=== PATIENT | male | born 1975 | race Hispanic/Latino ===

== ENCOUNTER 2017-06-06 16:19 | Inpatient (IN) | payer SELFPAY ==
[2017-06-06 17:07] LABS: Basophils % (Auto) 0.5 % (0.0-1.8); Eosinophils % (Auto) 0.6 % (0.0-4.3); Hematocrit 45.1 % (35.5-45.6); Hemoglobin 15.2 gm/dl (11.8-15.2); Mean Corpuscular HGB Conc 34 % (32-34); Mean Corpuscular Hemoglobin 31 pg (28-32); Mean Corpuscular Volume 93 fl (84-94); Platelet Count 251 K/mm3 (140-440); Red Blood Count 4.85 M/mm3 (3.65-5.03); Red Cell Distribution Width 14.5 % (13.2-15.2); White Blood Count 13.9 K/mm3 (4.5-11.0)
[2017-06-06 17:16] LABS: Anion Gap 22 mmol/L; BUN/Creatinine Ratio 18.88; Blood Urea Nitrogen 17 mg/dL (9-20); Calcium 10.2 mg/dL (8.4-10.2); Carbon Dioxide 25 mmol/L (22-30); Chloride 102.4 mmol/L (98-107); Glucose 93 mg/dL (75-100); Sodium 144 mmol/L (137-145)
[2017-06-06] MEDS ORDERED: TYLENOL ONE (21:37)
[2017-06-06] MEDS ORDERED: MORPHINE IV ONE (22:28)
[2017-06-06] MEDS ORDERED: NITRO-BID 2% TP ONE (22:28)
[2017-06-06] MEDS ORDERED: ZOFRAN IV ONE (22:28)
--- NOTE | 2017-06-06 22:35 | Emergency Department Report ---
HPI - General Chief Complaint: Chest Pain Time Seen by Provider: 06/06/17 22:20 - HPI HPI: Room 4 The patient is a 42-year-old male presenting with a chief complaint of chest pain. The patient states earlier today while he was up on a ladder to develop substernal/left-sided chest pain described as sharpness. The patient states his left upper extremity felt heavy and he fell off a ladder landing on his feet and buttocks. Patient admits to shortness of breath with this chest pain as well as nausea and diaphoresis. Patient currently gets his chest pain score of 5/10. The patient states he never had a stress test or cardiac catheterization Location: [see above] Duration: One day Quality: Sharp Severity:5/10 Modifying factors: [see above] Context: [see above] Mode of transportation: [not driving] ED Past Medical Hx - Past Medical History Previous Medical History?: No - Surgical History Past Surgical History?: No - Family History Family history: no significant - Social History Smoking Status: Current Every Day Smoker (2.5 packs per day) Substance Use Type: None (denies illicit drug use), Alcohol (consumes alcohol daily. Usually approximate 6-12 beers) - Medications Home Medications: Home Medications Medication Instructions Recorded Confirmed Last Taken Type oxyCODONE /ACETAMINOPHEN [Percocet 1 tab PO Q6HR PRN 06/06/17 06/06/17 Unknown History ] ED Review of Systems ROS: Stated complaint: FALL,CHEST PAIN Other details as noted in HPI Comment: All other systems reviewed and negative Constitutional: diaphoresis. denies: chills, fever Eyes: denies: eye pain, eye discharge, vision change Respiratory: shortness of breath Cardiovascular: chest pain Endocrine: no symptoms reported Gastrointestinal: nausea Genitourinary: denies: urgency, dysuria Musculoskeletal: back pain Skin: denies: rash, lesions Neurological: paresthesias (left upper extremity). denies: headache, weakness Psychiatric: denies: anxiety, depression Hematological/Lymphatic: denies: easy bleeding, easy bruising Physical Exam - Physical Exam Vital Signs: Vital Signs 06/06/17 06/06/17 06/06/17 16:32 21:31 22:11 Temperature 98.4 F 98.6 F Pulse Rate 97 H 73 74 Respiratory 16 18 16 Rate Blood Pressure 120/87 125/90 Blood Pressure 131/85 [Left] O2 Sat by Pulse 100 100 95 Oximetry Physical Exam: GENERAL: The patient is well-developed well-nourished male lying on stretcher not appearing to be in acute distress. [] HEENT: Normocephalic. Atraumatic. Extraocular motions are intact. Patient has moist mucous membranes. NECK: Supple. Trachea midline CHEST/LUNGS: Clear to auscultation. There is no respiratory distress noted. HEART/CARDIOVASCULAR: Regular. There is no tachycardia. There is no gallop rub or murmur. ABDOMEN: Abdomen is soft, nontender. Patient has normal bowel sounds. There is no abdominal distention. SKIN: There is no rash. There is no edema. There is no diaphoresis. NEURO: The patient is awake, alert, and oriented. The patient is cooperative. The patient has normal speech MUSCULOSKELETAL: There is no axial cervical, thoracic or lumbar tenderness to palpation. There is no limitation range of motion. There is no evidence of acute injury. Patient points to sacrum as source of pain ED Course Vital Signs 06/06/17 06/06/17 06/06/17 16:32 21:31 22:11 Temperature 98.4 F 98.6 F Pulse Rate 97 H 73 74 Respiratory 16 18 16 Rate Blood Pressure 120/87 125/90 Blood Pressure 131/85 [Left] O2 Sat by Pulse 100 100 95 Oximetry ED Medical Decision Making - Lab Data Result diagrams: 06/06/17 16:43 06/06/17 16:43 Laboratory Tests 06/06/17 06/06/17 06/06/17 16:43 16:43 19:19 WBC 13.9 H RBC 4.85 Hgb 15.2 Hct 45.1 MCV 93 MCH 31 MCHC 34 RDW 14.5 Plt Count 251 Lymph % (Auto) 13.3 L [place] % (Auto) 6.6 Eos % (Auto) 0.6 Baso % (Auto) 0.5 Lymph # 1.8 [place] # 0.9 H Eos # 0.1 Baso # 0.1 Seg Neutrophils % 79.0 H Seg Neutrophils # 11.0 H Sodium 144 Potassium 5.0 Chloride 102.4 Carbon Dioxide 25 Anion Gap 22 BUN 17 Creatinine 0.9 Estimated GFR > 60 BUN/Creatinine Ratio 18.88 Glucose 93 Calcium 10.2 Troponin T < 0.010 < 0.010 - EKG Data -: EKG Interpreted by Me EKG shows normal: sinus rhythm Rate: normal - EKG Data When compared to previous EKG there are: previous EKG unavailable Interpretation: normal EKG - Radiology Data Radiology results: image reviewed (chest x-ray, sacral x-ray) interpreted by me: Chest x-ray- no focal infiltrates, no pneumothorax Sacral x-ray-no acute fracture seen. Chronic appearing changes at L5 vertebral body - Differential Diagnosis ACS, GERD, pericarditis, PE, coccyx fracture Critical care attestation.: If time is entered above; I have spent that time in minutes in the direct care of this critically ill patient, excluding procedure time. ED Disposition Clinical Impression: Chest pain Disposition: DC-09 OP ADMIT IP TO THIS HOSP Is pt being admited?: Yes Does the pt Need Aspirin: Yes Condition: Fair Instructions: Chest Pain (ED) Referrals: PRIMARY CARE, [Primary Care Provider] - 3-5 Days Time of Disposition: 23:16 (hospitalist paged)
--- NOTE | 2017-06-06 23:19 | XRay Report ---
FINAL REPORT PROCEDURE: XR SPINE SACRUM/COCCYX 2+V TECHNIQUE: Sacrum and coccyx radiographs, AP and lateral views. HISTORY: low back pain after fall COMPARISON: No prior studies are available for comparison. FINDINGS: Bilateral spondylolysis appears to be present at L5 with grade 2 spondylolisthesis L5 in relation S1. The disc space is markedly narrowed. Vascular calcifications are seen overlying the lower abdominal aorta and iliac arteries. No other fractures are identified. Bone density appears normal. Mild degenerative changes are seen in the SI joints bilaterally IMPRESSION: Bilateral spondylolysis L5 with grade 2 spondylolisthesis L5 in relation S1. Mild degenerative changes SI joints bilaterally.
[2017-06-06] MEDS ORDERED: ASPIRIN PO ONE (23:34)
[2017-06-06] MEDS ORDERED: ALUM-MAG HYDROX-SIMETH 200-200-20MG/5ML PO PRN (23:41)
[2017-06-06] MEDS ORDERED: ZOFRAN IV PRN (23:41)
[2017-06-06] MEDS ORDERED: DULCOLAX PR PRN (23:41)
[2017-06-06] MEDS ORDERED: TYLENOL PO PRN (23:41)
[2017-06-06] MEDS ORDERED: PROVENTIL IH PRN (23:41)
[2017-06-06] MEDS ORDERED: NACL 0.9% 1000 ML 1,000 ML IV SCH (23:45)
[2017-06-06] MEDS ORDERED: NITROSTAT SL PRN (23:47)
--- NOTE | 2017-06-06 23:51 | History and Physical Report ---
History of Present Illness Date of examination: 06/06/17 Chief complaint: chest pain History of present illness: The patient is a 42-year-old male presenting with a chief complaint of chest pain. The patient states earlier today while he was up on a ladder to develop substernal/left-sided chest pain described as sharpness. The patient states his left upper extremity felt heavy and he fell off a ladder landing on his feet and buttocks. Patient admits to shortness of breath with this chest pain as well as nausea and diaphoresis. Patient currently gets his chest pain score of 5/10. The patient states he never had a stress test or cardiac catheterization Past History Past Medical History: No medical history Past Surgical History: No surgical history Social history: smoking, alcohol abuse, full code Family history: no significant family history Medications and Allergies Allergies Allergy/AdvReac Type Severity Reaction Status Date / Time No Known Allergies Allergy Verified 06/06/17 21:45 Home Medications Medication Instructions Recorded Confirmed Last Taken Type oxyCODONE /ACETAMINOPHEN [Percocet 1 tab PO Q6HR PRN 06/06/17 06/06/17 Unknown History ] Review of Systems All systems: negative (all 14 systems reviewed and found to be negative except as mentioned in HPI) Exam - Constitutional Vitals: Temp Pulse Resp BP Pulse Ox 98.6 F 74 16 131/85 95 06/06/17 21:31 06/06/17 22:11 06/06/17 22:11 06/06/17 22:11 06/06/17 22:11 Results - Labs CBC & Chem 7: 06/06/17 16:43 06/06/17 16:43 Labs: Laboratory Last Values WBC 13.9 K/mm3 (4.5-11.0) H 06/06/17 16:43 RBC 4.85 M/mm3 (3.65-5.03) 06/06/17 16:43 Hgb 15.2 gm/dl (11.8-15.2) 06/06/17 16:43 Hct 45.1 % (35.5-45.6) 06/06/17 16:43 MCV 93 fl (84-94) 06/06/17 16:43 MCH 31 pg (28-32) 06/06/17 16:43 MCHC 34 % (32-34) 06/06/17 16:43 RDW 14.5 % (13.2-15.2) 06/06/17 16:43 Plt Count 251 K/mm3 (140-440) 06/06/17 16:43 Lymph % (Auto) 13.3 % (13.4-35.0) L 06/06/17 16:43 [place] % (Auto) 6.6 % (0.0-7.3) 06/06/17 16:43 Eos % (Auto) 0.6 % (0.0-4.3) 06/06/17 16:43 Baso % (Auto) 0.5 % (0.0-1.8) 06/06/17 16:43 Lymph # 1.8 K/mm3 (1.2-5.4) 06/06/17 16:43 [place] # 0.9 K/mm3 (0.0-0.8) H 06/06/17 16:43 Eos # 0.1 K/mm3 (0.0-0.4) 06/06/17 16:43 Baso # 0.1 K/mm3 (0.0-0.1) 06/06/17 16:43 Seg Neutrophils % 79.0 % (40.0-70.0) H 06/06/17 16:43 Seg Neutrophils # 11.0 K/mm3 (1.8-7.7) H 06/06/17 16:43 D-Dimer < 135.00 ng/mlDDU (0-234) 06/06/17 22:30 Sodium 144 mmol/L (137-145) 06/06/17 16:43 Potassium 5.0 mmol/L (3.6-5.0) 06/06/17 16:43 Chloride 102.4 mmol/L (98-107) 06/06/17 16:43 Carbon Dioxide 25 mmol/L (22-30) 06/06/17 16:43 Anion Gap 22 mmol/L 06/06/17 16:43 BUN 17 mg/dL (9-20) 06/06/17 16:43 Creatinine 0.9 mg/dL (0.8-1.5) 06/06/17 16:43 Estimated GFR > 60 ml/min 06/06/17 16:43 BUN/Creatinine Ratio 18.88 % 06/06/17 16:43 Glucose 93 mg/dL (75-100) 06/06/17 16:43 Calcium 10.2 mg/dL (8.4-10.2) 06/06/17 16:43 Troponin T < 0.010 ng/mL (0.00-0.029) 06/06/17 22:30 Assessment and Plan Assessment and plan: Assessment and plan - * Chest pain rule out acute coronary syndrome * Plan to admit the patient to medical floor for telemetry * Check serial cardiac enzymes * Schedule the patient for a stress test in a.m. * Give when necessary morphine and nitroglycerin for chest pain * Patient is also status post fall and complaining of low back pain * Patient counseled extensively regarding tobacco abuse patient admitted to quit smoking * Monitor CBC and electrolytes replace electrolytes when necessary * DVT Prophylaxis as ordered * monitor and follow the patient closely VTE prophylaxis?: Chemical, Mechanical Plan of care discussed with patient/family: Yes
[2017-06-07 00:39] LABS: Creatine Kinase 230 units/L (55-170); Creatine Kinase MB 3.1 ng/mL (0.0-4.0)
[2017-06-07] MEDS: MORPHINE IV PRN ×2 (02:57→10:32)
[2017-06-07 05:03] LABS: Bilirubin,Urine NEG (Negative); Blood,Urine NEG (Negative); Ketones,Urine 20 mg/dL (Negative); Leukocyte Esterase,Urine NEG (Negative); Mucus,Urine 3+ /HPF; Nitrite,Urine NEG (Negative)
[2017-06-07] MEDS: NORCO 5/325 PO PRN ×2 (06:08→16:29)
[2017-06-07 07:00] LABS: Basophils % (Auto) 1.3 % (0.0-1.8); Eosinophils % (Auto) 5.9 % (0.0-4.3); Hematocrit 44.5 % (35.5-45.6); Hemoglobin 15.1 gm/dl (11.8-15.2); Mean Corpuscular HGB Conc 34 % (32-34); Mean Corpuscular Hemoglobin 31 pg (28-32); Mean Corpuscular Volume 93 fl (84-94); Platelet Count 243 K/mm3 (140-440); Red Cell Distribution Width 14.6 % (13.2-15.2); White Blood Count 7.6 K/mm3 (4.5-11.0)
[2017-06-07 07:22] LABS: Alanine Aminotransferase 21 units/L (7-56); Albumin 4.2 g/dL (3.9-5); Albumin/Globulin Ratio 1.4 %; Alkaline Phosphatase 37 units/L (35-129); Anion Gap 19 mmol/L; BUN/Creatinine Ratio 34.28; Blood Urea Nitrogen 24 mg/dL (9-20); Carbon Dioxide 25 mmol/L (22-30); Chloride 101.3 mmol/L (98-107); Glucose 104 mg/dL (75-100); Potassium 3.8 mmol/L (3.6-5.0); Sodium 141 mmol/L (137-145); Total Protein 7.1 g/dL (6.3-8.2)
--- NOTE | 2017-06-07 07:28 | XRay Report ---
CHEST 2 VIEWS INDICATION: Chest pain. COMPARISON: None similar at this institution. FINDINGS: PA and lateral chest radiographs demonstrate normal cardiomediastinal silhouette. No pleural effusions or CHF. Well-expanded lungs. Approximately 3 x 1.3 cm vague density in the left lower lung along the left ninth rib may represent an old deformity. CONCLUSION: Nonspecific left lower lung/possibly ninth rib finding, as described. Please also correlate clinically and with relevant imaging, as appropriate. Otherwise clear lungs. Thank you for the opportunity to participate in this patient's care.
[2017-06-07 07:31] LABS: Creatine Kinase 217 units/L (55-170)
[2017-06-07] MEDS ORDERED: LEXISCAN IV ONE ×2 (08:42→08:44)
--- NOTE | 2017-06-07 08:44 | Admit Criteria Form ---
Admission Criteria Documentation: CARDIOLOGY GRG Clinical Indications for Admission to Inpatient Care ([place]/check or initial the applicable condition/criteria) Hospital admission is needed for appropriate care of the patient because of ANY ONE of the following: [ ] I. Hemodynamic instability as indicated by ALL of the following (1)(2)(3) (4)(5)(6)(7)(8)(9)(10) [ ]a) Vital sign abnormality not readily corrected by appropriate treatment with 12-24 hours for ANY ONE: [ ]i) Hypotension that persists despite appropriate treatment (eg, volume repletion) [ ]ii) Tachycardiathat persists despite appropriate tx ( e.g., analgesia, fluids, sedation as indicated [ ]iii) Orthostatic vital sign changes that persists despite appropriate treatment (eg, volume repletion) [ ]b) Vital sign abnormailty that is severe indicated by ANY ONE of the following: [ ]i) Inadequate perfusion indicated by ANY ONE of the following: [ ] 1) Lactic acidosis (> 2 mmol/L) [ ] 2) New abnormal capillary refill (> 3 seconds) [ ] 3) Reduced urine output [ ] 4) New altered mental status [ ] 5) Myocardial Ischemia [ ] 6) Other metabolic acidosis (arterial pH <7.35 ) not otherwise explained. [ ]ii) Mean arterial pressure[A] less than 60 mm Hg [ ]iii) Mean arterial pressure[A] less than 70 mm Hg after 30 minutes of appropriate treatment (eg, fluid resuscitation) [ ]iv) Sustained heart rate greater than 120 beats per minute in adult or child 6 years or older[B] [ ]v) IV inotropic or vasopressor medication required to maintain adequate blood pressure or perfusion [ ] II. Severe heart failure as indicated by ANY ONE of the following(17)(18) [ ]a) Respiratory distress [ ]b) Hypotension [ ]c) Debilitating anasarca refractory to therapy (eg, tissue breakdown with infection)[C](19) [ ]d) Cardiac arrhythmias of immediate concern [ ]e) Myocardial ischemia [ ] III. Cardiac arrhythmias or findings of immediate concern indicated by ANY ONE of the following (21)(22): [ ] a) Heart rhythms that are inherently dangerous or unstable indicated by ANY ONE of the following (23)(24)(25): [ ] i) Resuscitated ventricular fibrillation or cardiac arrest [ ] ii) Ventricular escape rhythm [ ] iii) Sustained ventricular tachycardia (30 seconds or more of ventricular rhythm at greater than 100 beats per minute) [ ] iv) Nonsustained ventricular tachycardia and ANY ONE of the following: [ ] 1) Suspected cardiac ischemia as cause or consequence of ventricular tachycardia [ ] 2) Acute myocarditis [ ] b) Unstable cardiac conduction defects indicated by ANY ONE of the following(25)(26)(27) [ ] i) Type II second-degree atrioventricular block [ ]ii) Third-degree atrioventricular block [ ]iii) New-onset left bundle branch block with suspected myocardial ischemia [ ]c) Any heart rhythm and ANY ONE of the following (23)(24)(28)(29) (30) [ ] i) Continuous long-term ECG monitoring needed (e.g., initiation of drug requiring monitoring for more than 24 hours) [ ] ii) Patient has automatic implanted cardioverter defibrillator that is repeatedly firing, malfunctioning, or in need of immediate adjustment of settings beyond the scope of ambulatory or observation care [ ]d) Heart rhythms of concern due to ANY ONE of the following: [ ] i) Hypotension [ ] ii) Respiratory distress [ ] iii) Association with other significant symptoms (e.g., bradycardia with syncope or ongoing dizziness, supraventricular tachycardia with chest pain (28)(29)(31) [ ] IV. Monitoring for cardiac contusion beyond the scope of observation care needed [A](32)(33)(34) [ ] V. Surgical or device complication (e.g., valve replacement complication , ICD disfunction or pacemaker dysfunction) (49)(50)(51)(52)(53)(54) [ ] . Inpatient palliative care needed. [F](51)(52) Also use Inpatient Palliative Care Criteria [ ] VII. Nonbacterial thrombotic (mar[place]) endocarditis(43)(44)(55)(56)(57) [X] VIII. Cardiology condition, symptom, or finding for which emergency and observation care has failed or are not considered appropriate. [ ] IX. Acute valvular disease requiring inpatient as indicated by ANY ONE of the following (40)(41) [ ]a) Acute valvular regurgitation (42) [ ]b) Noninfectious valvulitis (43)(44) [ ]c) Obstructive valve thrombosis (45)(46) [ ]d) Paravalvular leak(47)(48) [ ]e) Other significant valvular disorder remaining after emergency or observation level of care (as appropriate) [ ]X. Pericardial disease requiring inpatient treatment as indicated by ANY ONE of the following (35)(36)(37)(38) [ ]a) Suspected tamponade [ ]b) Hemopericardium [ ]c) Other significant pericardial disorder remaining after emergency or observation level of care (as appropriate)(39) [ ] XI. Cardiac ischemia beyond scope of emergency and observation care. [ ] XII. Cyanotic heart disease requiring inpatient care as indicated by 1 or more of the following(58)(59)(60): [ ]a) Acute onset of hypoxemia [ ]b) Exacerbation [ ] XIII. Hypertension requiring inpatient treatment as indicated by ANYONE of the following(11)(12)(13)(14): [ ]a) Severe hypertension (SBP greater than 180 mm Hg or DBP greater than 110 mm Hg, or greater than the 95th percentile for age, gender, and height in pediatric patients) that cannot be controlled (eg, to SBP less than 160 mm Hg and DBP less than 100 mm Hg) by emergency department or observation care treatment(15) [ ]b) Acute end organ damage secondary to hypertension (SBP greater than 140 mm Hg or DBP greater than 90 mm Hg) as indicated by ANYONE of the following: [ ] i) Hypertensive encephalopathy (eg, Altered mental status)(16) [ ] ii) Cerebral infarction [ ] iii) Intracranial hemorrhage [ ] iv) Myocardial ischemia or infarction [ ] v) Heart failure (eg, pulmonary edema) [ ] vi) Aortic dissection [ ] vii) Increased creatinine (new) with reduction of more than 50% in estimated glomerular filtration rate from baseline [ ] viii) Papilledema [ ] ix) Retinal hemorrhage [ ] x) Microangiopathic hemolytic anemia [ ] xi) Seizure [ ] xii) Other significant finding secondary to hypertension [ ] XIV. Complications of transplanted heart indicated by ANY ONE of the following(61): [ ]a) Acute graft rejection requiring inpatient management (eg, intravenous imunosuppression)(62)(63) [ ]b) Acute graft heart failure indicated by ANY ONE of the following(64): [ ] i) Hemodynamic instability [ ] ii) Cardiac arrhythmias of immediate concern [ ] iii) Pulmonary edema that is very severe (eg, mechanical ventilation needed, imminent or likely, need for 100% oxygen to keep oxygen saturation above 90%) [ ] iv) Pulmonary edema that is persistent as indicated by ALL of the following: [ ] 1) New need for oxygen therapy to keep oxygen saturation above 90 % (or increased FiO2 need from baseline) [ ] 2) Has not improved sufficiently with emergency department or observation care IV diuretics or other heart failure treatments[E]. [ ] iv) Altered mental status that is severe or persistent [ ] iv) Increased creatinine (new on laboratory test) with reduction of more than 50% in estimated glomerular filtration rate from baseline [ ] iv) Progressively (ongoing) rising creatinine (known from past laboratory test) with reduction of more than 25% in estimated glomerular filtration rate from baseline [ ] iv) Acute renal failure [ ] iv) Acute peripheral ischemia (eg, examination shows pulseless, cool, mottled, or cyanotic extremity) [ ] iv) Pulmonary artery catheter monitoring needed [ ] iv) Other sign or symptom of heart failure requiring inpatient treatment (ie, too severe or not responsive to outpatient and observation care treatment) [ ]c) Infection requiring inpatient management (eg, Hemodynamic instability, need for intravenous antimicrobial treatment)(66)(67)(68)(69)(70) [ ]d) Cardiac allograft vasculopathy requiring inpatient management (eg evidence of cardiacischemia)(71) [ ]e) Other complication of transplanted heart (eg, stroke, severe pulmonary hypertension, severe valvular dysfunction) requiring inpatient management(72) The original [employer] content created by [employer] has been revised. The portions of the content which have been revised are identified through the use of italic text or in bold, and [employer] has neither reviewed nor approved the modified material. All other unmodified content is copyright [facility]. Please see references footnoted in the original [facility] edition 2017 Admission Criteria Met: Yes
--- NOTE | 2017-06-07 09:25 | Discharge Summary ---
Providers - Providers Date of Admission: 06/06/17 23:41 Date of discharge: 06/07/17 Attending physician: ASIF AVELAR Primary care physician: [employer]EARCH PROGRAM ASSISTANT Hospitalization Reason for admission: cp Condition: Fair Hospital course: The patient is a 42-year-old male presenting with a chief complaint of chest pain. The patient stated earlier in the day prior to admission that while he was up on a ladder he developed substernal/left-sided chest pain described as sharpness. The patient stated his left upper extremity felt heavy and he fell off a ladder landing on his feet and buttocks. Patient admitted to shortness of breath with this chest pain as well as nausea and diaphoresis. The patient states he never had a stress test or cardiac catheterization. EKG showed no acute changes. Serial troponins were found to be negative. Patient underwent a stress thallium which was found to be negative. Disposition: TO HOME OR SELFCARE Time spent for discharge: 32 - Discharge Diagnoses (1) Chest pain Status: Acute Qualifiers: Chest pain type: C Ischemic chest pain type: I Core Measure Documentation - Palliative Care Palliative Care/ Comfort Measures: Not Applicable - Core Measures Any of the following diagnoses?: none Exam - Constitutional Vitals: Temp Pulse Resp BP Pulse Ox 97.9 F 68 20 113/82 96 06/07/17 07:54 06/07/17 07:54 06/07/17 07:54 06/07/17 07:54 06/07/17 07:54 General appearance: Present: no acute distress, well-nourished - EENT Eyes: Present: PERRL ENT: hearing intact, clear oral mucosa - Neck Neck: Present: supple, normal ROM - Respiratory Respiratory effort: normal Respiratory: bilateral: CTA - Cardiovascular Heart Sounds: Present: S1 & S2. Absent: rub, click - Extremities Extremities: pulses symmetrical, No edema Peripheral Pulses: within normal limits - Abdominal General gastrointestinal: Present: soft, non-tender, non-distended, normal bowel sounds Male genitourinary: Present: normal - Integumentary Integumentary: Present: clear, warm, dry - Musculoskeletal Musculoskeletal: gait normal, strength equal bilaterally - Psychiatric Psychiatric: appropriate mood/affect, intact judgment & insight - Neurologic Neurologic: CNII-XII intact, moves all extremities Plan Activity: no restrictions Weight Bearing Status: Full Weight Bearing Diet: regular Follow up with: PRIMARY CARE, [Primary Care Provider] - 3-5 Days Prescriptions: oxyCODONE /ACETAMINOPHEN [Percocet 5/325 mg] 1 tab PO Q6HR PRN #15 tablet PRN Reason: Pain Pantoprazole [Protonix] 40 mg PO QDAY #30 tablet
[2017-06-07] MEDS: PEPCID IV SCH (11:32)
[2017-06-07] MEDS: LOVENOX SUB-Q SCH (11:32)
[2017-06-07] MEDS: ASPIRIN PO SCH (11:33)
[2017-06-07 12:37] LABS: Creatine Kinase MB 2.9 ng/mL (0.0-4.0)
[2017-06-07 12:39] LABS: Creatine Kinase 210 units/L (55-170)
--- NOTE | 2017-06-07 13:19 | Consultation ---
History of Present Illness Consult date: 06/07/17 Consult reason: chest pain History of present illness: The patient is a 42-year-old male presenting with a chief complaint of chest pain. The patient states earlier today while he was up on a ladder, he suddenly developed substernal/left-sided chest pain described as sharpness. The patient states his left upper extremity felt heavy and he fell off a ladder landing on his feet and buttocks. Patient admits to shortness of breath with this chest pain as well as nausea and diaphoresis. CXR is showing an ill- defined density 3x1.3 cm density in the left lower lung field. Patient underwent a lexiscan MPI today; however, unfortunately he was not able to lie still during the scan and there is a lot of motion artifact. Past History Past Medical History: No medical history Past Surgical History: No surgical history Social history: smoking, alcohol abuse, full code Family history: no significant family history Medications and Allergies Allergies Allergy/AdvReac Type Severity Reaction Status Date / Time No Known Allergies Allergy Verified 06/06/17 21:45 Home Medications Medication Instructions Recorded Confirmed Last Taken Type Pantoprazole [Protonix] 40 mg PO QDAY #30 tablet 06/07/17 Unknown Rx oxyCODONE /ACETAMINOPHEN [Percocet 1 tab PO Q6HR PRN #15 tablet 06/07/17 Unknown Rx 5/325 mg] Active Meds: Active Medications Acetaminophen (Tylenol) 650 mg PO Q4H PRN PRN Reason: Pain MILD(1-3)/Fever >100.5/ALBA Acetaminophen/Hydrocodone Bitart (Elba 5/325) 2 each PO Q6H PRN PRN Reason: Pain, Moderate (4-6) Last Admin: 06/07/17 06:08 Dose: 2 each Al Hydrox/Mg Hydrox/Simethicone (Alum-Mag Hydrox-Simeth [phone]/5ml) 30 ml PO Q4H PRN PRN Reason: Indigestion Albuterol (Proventil) 2.5 mg IH Q4HRT PRN PRN Reason: Shortness Of Breath Aspirin (Aspirin) 325 mg PO QDAY WILLY Last Admin: 06/07/17 11:33 Dose: 325 mg Bisacodyl (Dulcolax) [address] QDAY PRN PRN Reason: Constipation unrelieved by MOM Enoxaparin Sodium (Lovenox) 40 mg SUB-Q QDAY [facility] Last Admin: 06/07/17 11:32 Dose: 40 mg Famotidine (Pepcid) 20 mg IV BID [facility] Last Admin: 06/07/17 11:32 Dose: 20 mg Sodium Chloride (Nacl 0.9% 1000 Ml) 1,000 mls @ 100 mls/hr IV DIRECT WILLY Magnesium Hydroxide (Milk Of Magnesia) 30 ml PO Q4H PRN PRN Reason: Constipation Morphine Sulfate (Morphine) 2 mg IV Q4H PRN PRN Reason: Pain, Moderate (4-6) Last Admin: 06/07/17 10:32 Dose: 2 mg Nitroglycerin (Nitrostat) 0.4 mg SL .Q5MIN PRN PRN Reason: Chest Pain Ondansetron HCl (Zofran) 4 mg IV Q8H PRN PRN Reason: N/V unrelieved by Reglan Oxycodone/Acetaminophen (Percocet 5/325) 1 tab PO Q6HR PRN PRN Reason: Pain Zolpidem Tartrate (Ambien) 5 mg PO QHS PRN PRN Reason: Insomnia Review of Systems All systems: negative Physical Examination Vital Signs Temp Pulse Resp BP Pulse Ox 98.4 F 97 H 16 120/87 100 06/06/17 16:32 06/06/17 16:32 06/06/17 16:32 06/06/17 16:32 06/06/17 16:32 General appearance: no acute distress HEENT: Positive: PERRL Neck: Positive: neck supple Cardiac: Positive: Reg Rate and Rhythm Lungs: Positive: Normal Exam Neuro: Positive: Grossly Intact Results 06/07/17 06:35 06/07/17 06:35 Cardiac Enzymes 06/07/17 06/07/17 06/07/17 Range/Units 00:00 06:35 06:35 AST 19 (5-40) units/L CK-MB (CK-2) 3.1 3.0 (0.0-4.0) ng/mL 06/07/17 Range/Units 11:37 AST (5-40) units/L CK-MB (CK-2) 2.9 (0.0-4.0) ng/mL Lipids 06/06/17 Range/Units 23:57 Triglycerides 72 (2-149) mg/dL Cholesterol 165 (50-199) mg/dL HDL Cholesterol 56 (40-59) mg/dL Cholesterol/HDL Ratio 2.94 % CBC 06/07/17 Range/Units 06:35 WBC 7.6 (4.5-11.0) K/mm3 RBC 4.80 (3.65-5.03) M/mm3 Hgb 15.1 (11.8-15.2) gm/dl Hct 44.5 (35.5-45.6) % Plt Count 243 (140-440) K/mm3 Lymph # 2.0 (1.2-5.4) K/mm3 Wirt # 0.7 (0.0-0.8) K/mm3 Eos # 0.5 H (0.0-0.4) K/mm3 Baso # 0.1 (0.0-0.1) K/mm3 Comprehensive Metabolic Panel 06/07/17 Range/Units 06:35 Sodium 141 (137-145) mmol/L Potassium 3.8 D (3.6-5.0) mmol/L Chloride 101.3 (98-107) mmol/L Carbon Dioxide 25 (22-30) mmol/L BUN 24 H (9-20) mg/dL Creatinine 0.7 L (0.8-1.5) mg/dL Glucose 104 H (75-100) mg/dL Calcium 9.0 (8.4-10.2) mg/dL AST 19 (5-40) units/L ALT 21 (7-56) units/L Alkaline Phosphatase 37 (35-129) units/L Total Protein 7.1 (6.3-8.2) g/dL Albumin 4.2 (3.9-5) g/dL Assessment and Plan Atypical chest pain Negative Cardiac Enzymes Normal ECG Ill defined density measuring 3x1.3 cm in the left lower lobe on CXR MPI - poor quality due to patient motion during acquisition: Evidence of moderate size reversible anteroseptal defect ? artifact vs ischemia (patient was not able to stay still on the table) Alcohol abuse Nicotine dependence Recommendations: Obtain CTA chest to evaluate the ill defined density described on CXR in the [facility] field Doubt that his pain is due to myocardial ischemia and suspect that defect on his stress is resulting from excessive motion artifact. Further ischemic evaluation can be considered in the future when patient is able to maintain a still posture during acquisition
[2017-06-07] MEDS: PERCOCET 5/325 PO PRN ×2 (13:29→21:18)
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
[2017-06-08] MEDS: AMBIEN PO PRN ×2 (00:28→22:01)
[2017-06-08] MEDS: NORCO 5/325 PO PRN ×2 (00:28→11:52)
[2017-06-08] MEDS: PEPCID IV SCH ×2 (00:28→09:21)
--- NOTE | 2017-06-08 01:11 | Treadmill Report ---
INDICATION FOR PROCEDURE: Chest pain. ORDERING PHYSICIAN: Dr. Beyer FINDINGS: This is a poor quality myocardial perfusion scan due to excessive motion artifact noted on stress imaging. There is evidence of decreased tracer uptake noted in the septal wall suggesting myocardial reversibility in the LAD distribution. Doubt myocardial ischemia. Findings is most likely due to motion during perfusion imaging. The left ventricle is normal in size and systolic function and the left ventricular ejection fraction measured at 60%. Normal wall motion and wall thickening. CONCLUSION: 1. Poor quality myocardial perfusion scan due to excessive motion artifact noted on stress imaging. 2. Moderate sized reversible anteroseptal wall defect that is likely due to motion artifact. 3. Normal left ventricular size and systolic function. 4. Clinical correlation is recommended. JOB# [id number] SUKI/LOBITO
[2017-06-08] MEDS: MORPHINE IV PRN ×2 (06:26→18:22)
[2017-06-08] MEDS: LOVENOX SUB-Q SCH (09:19)
[2017-06-08] MEDS: ASPIRIN PO SCH (09:20)
[2017-06-08] MEDS: PERCOCET 5/325 PO PRN ×3 (09:20→22:02)
--- NOTE | 2017-06-08 09:57 | Progress Note ---
Assessment and Plan 1. Chest pain probably musculoskeletal. Patient unable to lay still for stress MPI 2. Lung mass questionable etiology workup in progress 3. Urinary retention Plan. Bladder scan. Check Echocardiogram. Pain management as per primary care physician Subjective Date of service: 06/08/17 Principal diagnosis: chest pains Interval history: Patient complains of hip pain and chest pain. He also states he has not passed urine in the past day and a half Objective Vital Signs Temp Pulse Resp BP BP Pulse Ox 06/08/17 07:43 98.5 F 57 L 16 115/86 96 06/08/17 06:26 20 06/08/17 00:28 20 06/07/17 23:57 98.2 F 66 120/83 95 06/07/17 21:18 20 06/07/17 20:24 98.6 F 100 H 20 129/67 96 06/07/17 16:12 98.0 F 68 20 111/79 96 06/07/17 13:29 18 - Physical Examination General: Appears Well, No Apparent Distress HEENT: Positive: PERRL Neck: Positive: neck supple, trachea midline. Negative: JVD/HJR Cardiac: Positive: Reg Rate and Rhythm, Regular Rhythm, S1/S2. Negative: S3, S4 Lungs: Positive: Normal Exam, clear to auscultation Neuro: Positive: Grossly Intact Abdomen: Positive: Unremarkable, Soft Extremities: Present: normal - Labs and Meds Cardiac Enzymes 06/07/17 Range/Units 11:37 CK-MB (CK-2) 2.9 (0.0-4.0) ng/mL
--- NOTE | 2017-06-08 10:23 | Progress Note ---
Assessment and Plan - Patient Problems (1) Chest pain Current Visit: Yes Status: Acute Qualifiers: Chest pain type: C Ischemic chest pain type: I Plan to address problem: Chest pain negative stress tests unremarkable echocardiogram. Most likely musculoskeletal in nature. I have patient follow-up cardiology outpatient. (2) Urinary retention Current Visit: Yes Status: Acute Plan to address problem: He shouldn't without any urine output will obtain bladder scan has been ordered already today. Follow-up Chem-7 is well. History Interval history: Patient states he still had some chest pain overnight. Cardiology evaluation for outpatient chest pain consistent with musculoskeletal pain. Workup negative. So far. Patient has not had any urinary output labs stable no flank pain. Bladder scan pending today. Hospitalist Physical - Constitutional Vitals: Temp Pulse Resp BP Pulse Ox 98.5 F 57 L 16 115/86 96 06/08/17 07:43 06/08/17 07:43 06/08/17 07:43 06/08/17 07:43 06/08/17 07:43 General appearance: Present: no acute distress - EENT Eyes: Present: PERRL, EOM intact ENT: hearing intact, clear oral mucosa, dentition normal - Neck Neck: Present: supple, normal ROM - Respiratory Respiratory effort: normal Respiratory: bilateral: CTA - Cardiovascular Rhythm: regular Heart Sounds: Present: S1 & S2 - Extremities Extremities: no ischemia, pulses intact, pulses symmetrical, No edema, normal temperature Peripheral Pulses: within normal limits - Abdominal General gastrointestinal: soft, non-tender, tender, normal bowel sounds - Psychiatric Psychiatric: appropriate mood/affect - Neurologic Neurologic: CNII-XII intact Results - Labs CBC & Chem 7: 06/07/17 06:35 06/07/17 06:35 Labs: Laboratory Last Values WBC 7.6 K/mm3 (4.5-11.0) 06/07/17 06:35 RBC 4.80 M/mm3 (3.65-5.03) 06/07/17 06:35 Hgb 15.1 gm/dl (11.8-15.2) 06/07/17 06:35 Hct 44.5 % (35.5-45.6) 06/07/17 06:35 MCV 93 fl (84-94) 06/07/17 06:35 MCH 31 pg (28-32) 06/07/17 06:35 MCHC 34 % (32-34) 06/07/17 06:35 RDW 14.6 % (13.2-15.2) 06/07/17 06:35 Plt Count 243 K/mm3 (140-440) 06/07/17 06:35 Lymph % (Auto) 25.9 % (13.4-35.0) 06/07/17 06:35 Benson % (Auto) 9.5 % (0.0-7.3) H 06/07/17 06:35 Eos % (Auto) 5.9 % (0.0-4.3) H 06/07/17 06:35 Baso % (Auto) 1.3 % (0.0-1.8) 06/07/17 06:35 Lymph # 2.0 K/mm3 (1.2-5.4) 06/07/17 06:35 Benson # 0.7 K/mm3 (0.0-0.8) 06/07/17 06:35 Eos # 0.5 K/mm3 (0.0-0.4) H 06/07/17 06:35 Baso # 0.1 K/mm3 (0.0-0.1) 06/07/17 06:35 Seg Neutrophils % 57.4 % (40.0-70.0) 06/07/17 06:35 Seg Neutrophils # 4.4 K/mm3 (1.8-7.7) 06/07/17 06:35 D-Dimer < 135.00 ng/mlDDU (0-234) 06/06/17 22:30 Sodium 141 mmol/L (137-145) 06/07/17 06:35 Potassium 3.8 mmol/L (3.6-5.0) D 06/07/17 06:35 Chloride 101.3 mmol/L (98-107) 06/07/17 06:35 Carbon Dioxide 25 mmol/L (22-30) 06/07/17 06:35 Anion Gap 19 mmol/L 06/07/17 06:35 BUN 24 mg/dL (9-20) H 06/07/17 06:35 Creatinine 0.7 mg/dL (0.8-1.5) L 06/07/17 06:35 Estimated GFR > 60 ml/min 06/07/17 06:35 BUN/Creatinine Ratio 34.28 % 06/07/17 06:35 Glucose 104 mg/dL (75-100) H 06/07/17 06:35 Hemoglobin A1c 5.8 % (4-6) 06/06/17 23:57 Calcium 9.0 mg/dL (8.4-10.2) 06/07/17 06:35 Total Bilirubin 0.60 mg/dL (0.1-1.2) 06/07/17 06:35 AST 19 units/L (5-40) 06/07/17 06:35 ALT 21 units/L (7-56) 06/07/17 06:35 Alkaline Phosphatase 37 units/L (35-129) 06/07/17 06:35 Total Creatine Kinase 210 units/L (55-170) H 06/07/17 11:37 CK-MB (CK-2) 2.9 ng/mL (0.0-4.0) 06/07/17 11:37 CK-MB (CK-2) Rel Index 1.3 (0-4) 06/07/17 11:37 Troponin T < 0.010 ng/mL (0.00-0.029) 06/07/17 11:37 Total Protein 7.1 g/dL (6.3-8.2) 06/07/17 06:35 Albumin 4.2 g/dL (3.9-5) 06/07/17 06:35 Albumin/Globulin Ratio 1.4 % 06/07/17 06:35 Triglycerides 72 mg/dL (2-149) 06/06/17 23:57 Cholesterol 165 mg/dL (50-199) 06/06/17 23:57 LDL Cholesterol Direct 95 mg/dL (50-130) 06/06/17 23:57 HDL Cholesterol 56 mg/dL (40-59) 06/06/17 23:57 Cholesterol/HDL Ratio 2.94 % 06/06/17 23:57 Urine Color Jael (Yellow) 06/07/17 04:40 Urine Turbidity Clear (Clear) 06/07/17 04:40 Urine pH 5.0 (5.0-7.0) 06/07/17 04:40 Ur Specific [place]on 1.032 (1.003-1.030) H 06/07/17 04:40 Urine Protein 30 mg/dl mg/dL (Negative) 06/07/17 04:40 Urine Glucose (UA) Neg mg/dL (Negative) 06/07/17 04:40 Urine Ketones 20 mg/dL (Negative) 06/07/17 04:40 Urine Blood Neg (Negative) 06/07/17 04:40 Urine Nitrite Neg (Negative) 06/07/17 04:40 Urine Bilirubin Neg (Negative) 06/07/17 04:40 Urine Urobilinogen 2.0 mg/dL (<2.0) 06/07/17 04:40 Ur Leukocyte Esterase Neg (Negative) 06/07/17 04:40 Urine WBC (Auto) 2.0 /HPF (0.0-6.0) 06/07/17 04:40 Urine RBC (Auto) 2.0 /HPF (0.0-6.0) 06/07/17 04:40 U Epithel Cells (Auto) < 1.0 /HPF (0-13.0) 06/07/17 04:40 Hyaline Casts 4 /LPF 06/07/17 04:40 Urine Mucus 3+ /HPF 06/07/17 04:40 - Imaging and Cardiology EKG: image reviewed Chest x-ray: image reviewed CT scan - chest: image reviewed
[2017-06-08] MEDS: MILK OF MAGNESIA PO PRN (15:19)
[2017-06-08] MEDS: PEPCID PO SCH (22:00)
[2017-06-09] MEDS: MORPHINE IV PRN (00:57)
[2017-06-09] MEDS: NORCO 5/325 PO PRN ×2 (03:59→09:29)
[2017-06-09 06:00] LABS: Anion Gap 19 mmol/L; BUN/Creatinine Ratio 28.57; Blood Urea Nitrogen 20 mg/dL (9-20); Calcium 8.8 mg/dL (8.4-10.2); Carbon Dioxide 22 mmol/L (22-30); Chloride 102.2 mmol/L (98-107); Glucose 101 mg/dL (75-100); Potassium 4.5 mmol/L (3.6-5.0); Sodium 139 mmol/L (137-145)
[2017-06-09] MEDS: PERCOCET 5/325 PO PRN ×2 (06:48→12:55)
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
[2017-06-09] MEDS: ASPIRIN PO SCH (09:29)
[2017-06-09] MEDS: PEPCID PO SCH (09:29)
[2017-06-09] MEDS: LOVENOX SUB-Q SCH (09:30)
--- NOTE | 2017-06-09 10:29 | Progress Note ---
Subjective Date of service: 06/09/17 Principal diagnosis: chest pains Interval history: Patient complains of hip pain and chest pain. He also states he has not passed urine in the past day and a half Objective Vital Signs Temp Pulse Resp Resp BP Pulse Ox 06/09/17 07:08 98.3 F 61 18 116/87 96 06/09/17 06:48 20 06/09/17 06:04 98.4 F 06/09/17 06:02 57 L 20 94/63 96 06/09/17 03:59 20 06/09/17 00:57 20 06/09/17 00:08 98.5 F 06/09/17 00:06 57 L 20 106/72 96 06/08/17 22:02 20 20 06/08/17 20:23 96 06/08/17 20:12 98.5 F 06/08/17 20:10 61 18 114/75 95 06/08/17 17:14 97.9 F 58 L 16 97 06/08/17 17:11 97.9 F 20 125/90 06/08/17 13:56 98 06/08/17 12:32 98.5 F 62 15 137/94 99 - Physical Examination General: Appears Well, No Apparent Distress HEENT: Positive: PERRL Neck: Positive: neck supple, trachea midline. Negative: JVD/HJR Cardiac: Positive: Regular Rate, S1/S2. Negative: S3, S4 Lungs: Positive: clear to auscultation, No Wheeze, Rales, Rhonchi Neuro: Positive: Grossly Intact Abdomen: Positive: Unremarkable, Soft Extremities: Present: normal - Labs and Meds Comprehensive Metabolic Panel 06/09/17 Range/Units 05:05 Sodium 139 (137-145) mmol/L Potassium 4.5 (3.6-5.0) mmol/L Chloride 102.2 (98-107) mmol/L Carbon Dioxide 22 (22-30) mmol/L BUN 20 (9-20) mg/dL Creatinine 0.7 L (0.8-1.5) mg/dL Glucose 101 H (75-100) mg/dL Calcium 8.8 (8.4-10.2) mg/dL - Imaging and Cardiology EKG: image reviewed - Telemetry EKG Rhythm: Sinus Rhythm
[2017-06-09 12:34] VITALS: BP 119/90
[2017-06-09] MEDS: MILK OF MAGNESIA PO PRN (12:56)
[2017-06-09] MEDS ORDERED: Fluarix Quad 2017-2018(36 MOS+) IM ONE (13:25)
[2017-06-09] MEDS ORDERED: PNEUMOVAX 23 IM ONE (13:26)
== END 2017-06-09 14:30 | disposition home or self-care (01) | DRG 206 ==
LOC: ED 16:19 → 3A 23:41
PROVIDERS: ADMIT Internal Medicine Geriatric Medicine; ATTEND Hospitalist
PROC: 3E0234Z Introduction of Serum, Toxoid and Vaccine into Muscle, Percutaneous Approach (ICD-10-PCS; principal; 2017-06-06)
DX: M94.0 Chondrocostal junction syndrome [Tietze] (principal); F10.10 Alcohol abuse, uncomplicated; R07.9 Chest pain, unspecified; F17.200 Nicotine dependence, unspecified, uncomplicated; R33.9 Retention of urine, unspecified; Z71.6 Tobacco abuse counseling; Z23 Encounter for immunization
CPT/HCPCS: 36415; 71020; 71260; 72220; 78452; 80048; 80053; 80061; 81001; 82550; 82553; 83036; 84484; 85025; 85379; 90686; 90732; 93005; 93010; 93017; A9502; J1650; J2270; J2405; J2785; Q9967

== ENCOUNTER 2019-04-25 12:24 | Emergency (ER) | payer SELFPAY ==
[2019-04-25] MEDS ORDERED: BABY ASPIRIN PO ONE (12:36)
--- NOTE | 2019-04-25 12:40 | Event Note ---
Date: 04/25/19 44 y.o male presents to ER with left sided chest pain around 830, while playing golf, left the golf course around 940am, went home to do yard work and had a syncopal episode on his porch, found by his neighbor, had no recollection of events that led to him passing out. h/o chest pain in 2017, was seen at [facility] by [facility], had a negative stress test then. He admits to drinking two beers and a vokda cranberry drink this am. The initial assessment/diagnostic orders/clinical plan/treatment(s) is/are subject to change based on patient's health status,clinical progression and re- assessment by fellow clinical providers in the ED. Further treatment and workup at subsequent clinical providers discretion. Patient/guardian urged not to elope from the ED as their condition may be serious if not clinically assessed and managed.
--- NOTE | 2019-04-25 13:10 | XRay Report ---
CHEST 2 VIEWS, 04/25/2019 at 1255 INDICATION: Chest pain COMPARISON: No prior studies are available for comparison. FINDINGS: Support devices: None Heart: Heart size and pulmonary vascularity appear within normal limits. Lungs/pleura: The lungs appear clear of focal airspace disease or significant pleural effusion. Additional findings: No additional acute findings. IMPRESSION: 1. No evidence of acute cardiopulmonary process. Signer Name: Yelena Azevedo MD Signed: 04/25/2019 1:06 PM Workstation Name: [id number]
[2019-04-25] MEDS ORDERED: SUBLIMAZE IV ONE (13:18)
[2019-04-25] MEDS ORDERED: ZOFRAN IV ONE (13:18)
[2019-04-25 13:24] LABS: Basophils # (Auto) 0.1 K/mm3 (0.0-0.1); Basophils % (Auto) 0.6 % (0.0-1.8); Eosinophils % (Auto) 0.5 % (0.0-4.3); Hematocrit 46.1 % (35.5-45.6); Hemoglobin 15.6 gm/dl (11.8-15.2); Lymphocytes # (Auto) 1.9 K/mm3 (1.2-5.4); Lymphocytes % (Auto) 22.3 % (13.4-35.0); Mean Corpuscular HGB Conc 34 % (32-34); Mean Corpuscular Volume 94 fl (84-94); Monocytes # (Auto) 0.5 K/mm3 (0.0-0.8); Monocytes % (Auto) 5.5 % (0.0-7.3); Platelet Count 207 K/mm3 (140-440)
--- NOTE | 2019-04-25 13:24 | Emergency Department Report ---
HPI - General Chief Complaint: Chest Pain Time Seen by Provider: 04/25/19 13:06 - HPI HPI: Room 23 Patient is a 44-year-old male presents chief complaint chest pain and syncope. The patient states this morning at 07:30 is playing golf and at approximately the fourth hole and suffered a left-sided chest pain described as shortness like a dagger. The patient states she can feel weak so he went home. Approximately 10:00 he had lunch little bit of alcohol to drink. 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 Patient states there is pleurisy with this left-sided chest pain in addition to diaphoresis and nausea without vomiting the patient complains of pain in his right upper extremity weakness secondary to a fall from his syncopal episode Location: [See above] Duration: [See above] Quality: [See above] Severity: [See above] Modifying factors: [see above] Context: [see above] Mode of transportation: [not driving] ED Past Medical Hx - Past Medical History Previous Medical History?: Yes Additional medical history: "cardiac issue" in 2016 diagnosis unknown - Surgical History Past Surgical History?: No - Family History Family history: CAD/ND (multiple males have from MIs) - Social History Smoking Status: Current Every Day Smoker (2 packs per day) Substance Use Type: None (denies illicit drug use), Alcohol - Medications Home Medications: Home Medications Medication Instructions Recorded Confirmed Last Taken Type Pantoprazole [Protonix] 40 mg PO QDAY #30 tablet 06/07/17 Unknown Rx oxyCODONE /ACETAMINOPHEN [Percocet 1 tab PO Q6HR PRN #15 tablet 06/07/17 Unknown Rx 5/325 mg] oxyCODONE /ACETAMINOPHEN [Percocet 1 tab PO Q6HR PRN #30 tablet 06/09/17 Unknown Rx 5/325 mg] ED Review of Systems ROS: Stated complaint: CHEST PAIN/FELL OUT YESTERDAY Other details as noted in HPI Constitutional: diaphoresis Eyes: denies: eye pain ENT: denies: throat pain Respiratory: shortness of breath Cardiovascular: chest pain Endocrine: no symptoms reported Gastrointestinal: nausea. denies: vomiting Musculoskeletal: denies: back pain Neurological: denies: headache Physical Exam - Physical Exam Vital Signs: Vital Signs 04/25/19 12:35 Temperature 98.1 F Pulse Rate 102 H Respiratory 18 Rate Blood Pressure 102/82 O2 Sat by Pulse 96 Oximetry Physical Exam: GENERAL: The patient is well-developed well-nourished male lying on stretcher not appearing to be in acute distress. [] HEENT: Normocephalic. Atraumatic. Extraocular motions are intact. Patient has moist mucous membranes. NECK: Supple. Trachea midline CHEST/LUNGS: Clear to auscultation. There is no respiratory distress noted. HEART/CARDIOVASCULAR: Regular. There is no tachycardia. There is no gallop rub or murmur. ABDOMEN: Abdomen is soft, nontender. Patient has normal bowel sounds. There is no abdominal distention. SKIN: There is no rash. There is no edema. There is no diaphoresis. NEURO: The patient is awake, alert, and oriented. The patient is cooperative. The patient has no focal neurologic deficits. The patient has normal speech. Cranial nerves II through XII grossly intact, MUSCULOSKELETAL: There is tenderness to palpation of the right forearm and shoulder. ED Course Vital Signs 04/25/19 12:35 Temperature 98.1 F Pulse Rate 102 H Respiratory 18 Rate Blood Pressure 102/82 O2 Sat by Pulse 96 Oximetry ED Medical Decision Making - Lab Data Result diagrams: 04/25/19 13:03 04/25/19 13:03 - EKG Data -: EKG Interpreted by Me EKG shows normal: sinus rhythm Rate: tachycardia (104 bpm) - EKG Data When compared to previous EKG there are: previous EKG unavailable Interpretation: other (no ischemic changes seen) - Radiology Data Radiology results: report reviewed (chest x-ray, right forearm x-ray, right shoulder x-ray, right hip x-ray, CT head, CT chest), image reviewed (chest x- ray, right forearm x-ray, right shoulder x-ray, right hip x-ray, CT head, CT chest) interpreted by me: Chest x-ray-no focal infiltrates, no pneumothorax Right forearm x-ray-no acute fracture Right hip x-ray-no acute fracture Right shoulder x-ray-no acute fracture [facility] [address] [place] [address] XRay Report Signed Patient: MAURICE KC MR#: [id number] : 1975 Acct:[id number] Age/Sex: 44 / M ADM Date: 04/25/19 Loc: ED Attending Dr: Ordering Physician: LILIAN WILLIS MD Date of Service: 04/25/19 Procedure(s): XR chest routine 2V Accession Number(s): [id number] cc: LILIAN WILLIS MD Fluoro Time In Minutes: CHEST 2 VIEWS, 04/25/2019 at 1255 INDICATION: Chest pain COMPARISON: No prior studies are available for comparison. FINDINGS: Support devices: None Heart: Heart size and pulmonary vascularity appear within normal limits. Lungs/pleura: The lungs appear clear of focal airspace disease or significant pleural effusion. Additional findings: No additional acute findings. IMPRESSION: 1. No evidence of acute cardiopulmonary process. Signer Name: Yelena Azevedo MD Signed: 04/25/2019 1:06 PM Workstation Name: [id number] Transcribed By: EB Dictated By: Yelena Azevedo MD Electronically Authenticated By: Yelena Azevedo MD Signed Date/Time: 04/25/19 1306 DD/ 1305 TD/TT: [facility] [address] [place] [address] Cat Scan Report Signed Patient: MAURICE KC MR#: [id number] : 1975 Acct:[id number] Age/Sex: 44 / M ADM Date: 04/25/19 Loc: ED Attending Dr: Ordering Physician: TEJAL SHAW MD Date of Service: 04/25/19 Procedure(s): CT head/brain wo con Accession Number(s): [id number] cc: TEJAL SHAW MD CT head/brain wo con INDICATION / CLINICAL INFORMATION: 44 years Male; MAIN: syncope LOC FOR ABOUT 2 MINS ALSO CHEST PAIN NO OLD STUDIES . 44-year-old male TECHNIQUE: Routine CT head without contrast. All CT scans at this location are performed using CT dose reduction for ALARA by means of automated exposure control. COMPARISON: None. FINDINGS: BRAIN / INTRACRANIAL CONTENTS: No acute hemorrhage, mass effect, midline shift, hydrocephalus, or acute, large territorial infarct. No chronic infarct or focal atrophy. Normal brain volume and ventricular/sulcal size for age. No significant white matter abnormality. CRANIOCERVICAL JUNCTION: No significant abnormality. ORBITS: No significant abnormality of visualized orbits. SINUSES / MASTOIDS: No significant abnormality of the visualized paranasal sinuses or mastoid air cells. ADDITIONAL FINDINGS: None. IMPRESSION: 1. No focal mass, hemorrhage, hydrocephalus, or acute, large territorial infar ct. Signer Name: Ritesh Morales MD, III Signed: 04/25/2019 3:20 PM Workstation Name: [id number] Transcribed By: Dictated By: Ritesh Morales MD Electronically Authenticated By: Ritesh Morales MD Signed Date/Time: 04/25/19 1520 DD/ 1519 TD/TT: [address] [address] XRay Report Signed Patient: MAURICE KC MR#: [id number] : 1975 Acct:[id number] Age/Sex: 44 / M ADM Date: 04/25/19 Loc: ED Attending Dr: Ordering Physician: TEJAL SHAW MD Date of Service: 04/25/19 Procedure(s): XR hip 2-3V RT Accession Number(s): [id number] cc: TEJAL SHAW MD Fluoro Time In Minutes: Examination: Right hip radiograph, 2 views, 04/25/2019 Clinical information: Fall. Trauma. Comparison: None. Findings: There is no evidence of acute fracture or dislocation of the right hip. Signer Name: Yelena Azevedo MD Signed: 04/25/2019 2:36 PM Workstation Name: [id number] Transcribed By: EB Dictated By: Yelena Azevedo MD Electronically Authenticated By: Yelena Azevedo MD Signed Date/Time: 04/25/19 1436 DD/ 1430 TD/TT: [address] [address] XRay Report Signed Patient: MAURICE KC MR#: [id number] : 1975 Acct:[id number] Age/Sex: 44 / M ADM Date: 04/25/19 Loc: ED Attending Dr: Ordering Physician: TEJAL SHAW MD Date of Service: 04/25/19 Procedure(s): XR shoulder 2+V RT Accession Number(s): [id number] cc: TEJAL SHAW MD Fluoro Time In Minutes: CLINICAL DATA: pain after syncopal episode TECHNICAL DATA: AP internal, AP external, and Y views were obtained of the shoulder. FINDINGS: There is no acute fracture. The glenoid fossa humeral head articulation is normal. There is no acromioclavicular joint widening or offset. The coracoclavicular distance is normal. There are no significant degenerative changes. IMPRESSION: No acute radiographic abnormality. Signer Name: Dorian Flores MD Signed: 04/25/2019 1:56 PM Workstation Name: [id number] Transcribed By: LINDA Dictated By: Dorian Flores MD Electronically Authenticated By: Dorian Flores MD Signed Date/Time: 04/25/19 135 DD/ 135 TD/TT: [address] [address] XRay Report Signed Patient: MAURICE KC MR#: [id number] : 1975 Acct:[id number] Age/Sex: 44 / M ADM Date: 04/25/19 Loc: ED Attending Dr: Ordering Physician: TEJAL SHAW MD Date of Service: 04/25/19 Procedure(s): XR forearm RT Accession Number(s): [id number] cc: TEJAL SHAW MD Fluoro Time In Minutes: RIGHT FOREARM HISTORY: Pain COMPARISON: None. TECHNIQUE: 2 views of the right foot were obtained. FINDINGS: Bones: No fracture or dislocation. Joint spaces: Maintained. Soft tissues: No significant abnormality. Additional findings: None. IMPRESSION: 1. No significant abnormality. Signer Name: Dorian Flores MD Signed: 04/25/2019 1:54 PM Workstation Name: [id number] Transcribed By: LINDA Dictated By: Dorian Flores MD Electronically Authenticated By: Dorian Flores MD Signed Date/Time: 04/25/19 135 DD/ 1353 TD/TT: [address] [address] Cat Scan Report Signed Patient: MAURICE KC MR#: [id number] : 1975 Acct:[id number] Age/Sex: 44 / M ADM Date: 04/25/19 Loc: ED Attending Dr: Ordering Physician: TEJAL SHAW MD Date of Service: 04/25/19 Procedure(s): CT angio chest Accession Number(s): [id number] cc: TEJAL SHAW MD CTA CHEST WITH IV CONTRAST, 04/25/2019 INDICATION: Chest pain TECHNIQUE: Axial CT images were obtained through the chest after injection of IV contrast. Coronal oblique 2- D reconstruction images were produced. 3 plane MIP reconstruction images were produced at an independent workstation. All CTs at this facility utilize dose reduction techniques including automated exposure control, iterative reconstruction and weight based dosing when appropriate to reduce patient radiation dose to as low as reasonable achievable. COMPARISON: None. FINDINGS: Evaluation of the pulmonary arteries demonstrates no evidence of central or segmental filling defects to suggest pulmonary embolism. The heart is normal in size. Evaluation of the lung parenchyma demonstrates no evidence of focal airspace disease or pleural effusi on. There is minimal dependent atelectasis. Limited imaging of the upper abdomen demonstrates diffusely decreased attenuation of the hepatic parenchyma. Evaluation of bony structures demonstrates no evidence of acute bony abnormality. IMPRESSION: 1. No evidence of pulmonary embolism or acute parenchymal process. 2. Diffusely decreased attenuation of the hepatic parenchyma suggesting hepatic steatosis. Signer Name: Yelena Azevedo MD Signed: 04/25/2019 3:31 PM Workstation Name: [id number] Transcribed By: EB Dictated By: Yelena Azevedo MD Electronically Authenticated By: Yelena Azevedo MD Signed Date/Time: 04/25/19 1531 DD/ 1527 TD/TT: - Differential Diagnosis ACS, PE, syncope, dysrhythmia Critical care attestation.: If time is entered above; I have spent that time in minutes in the direct care of this critically ill patient, excluding procedure time. ED Disposition Clinical Impression: Chest pain, Syncope Disposition: OP ADMIT IP TO THIS HOSP Is pt being admited?: Yes Condition: Fair Instructions: Chest Pain (ED), Syncope (ED) Referrals: YAS SHANKAR MD [Primary Care Provider] - 3-5 Days Time of Disposition: 15:39 (Hospitalist paged (Dr Chua))
[2019-04-25 13:36] LABS: INR 0.88 (0.87-1.13)
[2019-04-25 13:37] LABS: Alanine Aminotransferase 29 units/L (7-56); Albumin 4.3 g/dL (3.9-5); BUN/Creatinine Ratio 9; Blood Urea Nitrogen 8 mg/dL (9-20); Calcium 8.7 mg/dL (8.4-10.2); Hemolysis Index 4; Partial Thromboplastin Time 28.1 Sec. (24.2-36.6)
--- NOTE | 2019-04-25 13:58 | XRay Report ---
RIGHT FOREARM HISTORY: Pain COMPARISON: None. TECHNIQUE: 2 views of the right foot were obtained. FINDINGS: Bones: No fracture or dislocation. Joint spaces: Maintained. Soft tissues: No significant abnormality. Additional findings: None. IMPRESSION: 1. No significant abnormality. Signer Name: Dorian Flores MD Signed: 04/25/2019 1:54 PM Workstation Name: [id number]
--- NOTE | 2019-04-25 14:00 | XRay Report ---
CLINICAL DATA: pain after syncopal episode TECHNICAL DATA: AP internal, AP external, and Y views were obtained of the shoulder. FINDINGS: There is no acute fracture. The glenoid fossa humeral head articulation is normal. There is no acromi oclavicular joint widening or offset. The coracoclavicular distance is normal. There are no significa nt degenerative changes. IMPRESSION: No acute radiographic abnormality. Signer Name: Dorian Flores MD Signed: 04/25/2019 1:56 PM Workstation Name: [id number]
--- NOTE | 2019-04-25 14:41 | XRay Report ---
Examination: Right hip radiograph, 2 views, 04/25/2019 Clinical information: Fall. Trauma. Comparison: None. Findings: There is no evidence of acute fracture or dislocation of the right hip. Signer Name: Yelena Azevedo MD Signed: 04/25/2019 2:36 PM Workstation Name: [id number]
--- NOTE | 2019-04-25 15:25 | Cat Scan Report ---
CT head/brain wo con INDICATION / CLINICAL INFORMATION: 44 years Male; MAIN: syncope LOC FOR ABOUT 2 MINS ALSO CHEST PAIN NO OLD STUDIES . 44-year-old ma le TECHNIQUE: Routine CT head without contrast. All CT scans at this location are performed using CT dos e reduction for ALARA by means of automated exposure control. COMPARISON: None. FINDINGS: BRAIN / INTRACRANIAL CONTENTS: No acute hemorrhage, mass effect, midline shift, hydrocephalus, or acu te, large territorial infarct. No chronic infarct or focal atrophy. Normal brain volume and ventricul ar/sulcal size for age. No significant white matter abnormality. CRANIOCERVICAL JUNCTION: No significant abnormality. ORBITS: No significant abnormality of visualized orbits. SINUSES / MASTOIDS: No significant abnormality of the visualized paranasal sinuses or mastoid air jackelin ls. ADDITIONAL FINDINGS: None. IMPRESSION: 1. No focal mass, hemorrhage, hydrocephalus, or acute, large territorial infarct. Signer Name: Ritesh Morales MD, III Signed: 04/25/2019 3:20 PM Workstation Name: [id number]
--- NOTE | 2019-04-25 15:35 | Cat Scan Report ---
CTA CHEST WITH IV CONTRAST, 04/25/2019 INDICATION: Chest pain TECHNIQUE: Axial CT images were obtained through the chest after injection of IV contrast. Coronal oblique 2-D reconstruction images were produced. 3 plane MIP reconstruction images were produced at an [employer] workstation. All CTs at this facility utilize dose reduction techniques including automated expos ure control, iterative reconstruction and weight based dosing when appropriate to reduce patient radi ation dose to as low as reasonable achievable. COMPARISON: None. FINDINGS: Evaluation of the pulmonary arteries demonstrates no evidence of central or segmental filling defects to suggest pulmonary embolism. The heart is normal in size. Evaluation of the lung parenchyma demons trates no evidence of focal airspace disease or pleural effusion. There is minimal dependent atelecta sis. Limited imaging of the upper abdomen demonstrates diffusely decreased attenuation of the hepatic pare nchyma. Evaluation of bony structures demonstrates no evidence of acute bony abnormality. IMPRESSION: 1. No evidence of pulmonary embolism or acute parenchymal process. 2. Diffusely decreased attenuation of the hepatic parenchyma suggesting hepatic steatosis. Signer Name: Yelena Azevedo MD Signed: 04/25/2019 3:31 PM Workstation Name: [id number]
[2019-04-25] MEDS ORDERED: CARAFATE PO ONE (15:41)
[2019-04-25] MEDS ORDERED: PROTONIX PO ONE (15:41)
[2019-04-25] MEDS ORDERED: VITAMIN B-1 100 MG, FOLVITE 1 MG, INFUVITE 10 ML in NACL 0.9% 1000 ML 1,000 ML IV ONE (17:00)
[2019-04-25] MEDS ORDERED: NACL 0.9% 1000 ML 1,000 ML IV ONE (17:00)
--- NOTE | 2019-04-25 18:37 | Event Note ---
Date: 04/25/19 44 YO Male Nicotine Dependence Nicotine Dependence, ETOH Dependence presents to ED for evaluation of chest pain. Pt treated IAW chest pain protocol. Serial cardiac enzymes, ekg, telemetry wore unremarkable for ischemia. D dimer elevated, but CTA chest was negative for PE. Pt found to have ETOH intoxication and treated IAW ETOH withdrawl protocol as well as PPI therpay. Pt medically optimized, and back to usual state of health. Pt discharged home and instructed to f/u pcp 3-5 days, and well as f/u caridiology 3-5 days. Pt instructed to attend AA meeting at discharge. +15 minutes smoking cessation counseling, as well as +15 minutes ETOH cessation counseling. Physical Exam: GENERAL: The patient is well-developed well-nourished male lying on stretcher not appearing to be in acute distress. [] HEENT: Normocephalic. Atraumatic. PERRL, Extraocular motions are intact. Patient has moist mucous membranes. NECK: Supple. Trachea midline CHEST/LUNGS: Clear to auscultation. There is no respiratory distress noted. HEART/CARDIOVASCULAR: RRR, No MRG, Normal S1,S2, No accessory heart sounds, NO deviation of PMI. ABDOMEN: Abdomen is soft, nontender. Patient has normal bowel sounds. There is no abdominal distention. SKIN: There is no rash. There is no edema. There is no diaphoresis. NEURO: The patient is awake, alert, and oriented. The patient is cooperative. The patient has no focal neurologic deficits. The patient has normal speech. Cranial nerves II through XII grossly intact, MUSCULOSKELETAL: Normal ROM to BUE/BLE, No joint swelling/tenderness/effusion.
[2019-04-25] MEDS ORDERED: IBUPROFEN PO ONE (19:18)
[2019-04-25] MEDS ORDERED: IBUPROFEN ONE (19:22)
[2019-04-25 19:59] VITALS: BP 107/73
== END 2019-04-25 20:57 | disposition admitted as inpatient to this hospital (09) ==
LOC: ED 12:24
DX: R07.89 Other chest pain (principal); R55 Syncope and collapse; F17.210 Nicotine dependence, cigarettes, uncomplicated; Z79.899 Other long term (current) drug therapy
CPT/HCPCS: 36415; 70450; 71046; 71275; 73030; 73090; 73502; 80053; 83690; 84484; 85025; 85379; 85610; 85730; 93005; 93010; 96365; 96375; 99285; J2405; J3010; J3411; J7030; Q9967; 80320; G0480